=== PATIENT | female | born 1950 | race Caucasian/White ===

== ENCOUNTER 2021-12-26 21:29 | Emergency (ER) | payer OTHER, MEDICARE ==
[~2021-12-26] VITALS: Ht 157.5 cm; Wt 79.4 kg
[2021-12-26 21:37] VITALS: BP_SYST 172
--- NOTE | 2021-12-26 21:40 | NUR ---
Note fuentes in EDM - 12/26/21 at 2357 by SDNSHELDON PATIENT IS AWAKE AND ALERT. C/O HIGH BP AT HOME, NAUSEA/DIZZINESS X 2HRS. PAIN STATED 04/17 HEADACHE. NO OTHER COMPLAINTS AT THIS TIME. NO SIGNS OF ACUTE DISTRESS NOTED. WILL CONTINUE TO MONITOR.
--- NOTE | 2021-12-26 21:49 | NUR ---
Placed in room 6 . Placed on nurse monitoring, blood pressure machine and pulse oximeter. To gown for exam. Side rails up. Report given to FRANCK LUDWIG.
--- NOTE | 2021-12-26 21:50 | NUR ---
PATIENT IS AWAKE AND ALERT. C/O HIGH BP AT HOME, NAUSEA/DIZZINESS X 2HRS. PAIN STATED 8/10 HEADACHE. NO OTHER COMPLAINTS AT THIS TIME. NO SIGNS OF ACUTE DISTRESS NOTED. WILL CONTINUE TO MONITOR.
--- NOTE | 2021-12-26 22:04 | NUR ---
ER MD JUÁREZ AT BEDSIDE EXAMINING PATIENT.
[2021-12-26 23:15] LABS: BILIRUBIN,URINE NEGATIVE (NEGATIVE); BLOOD, URINE 2+ (NEGATIVE); CLARITY/URINE CLEAR (CLEAR); COLOR,URINE ORANGE (YELLOW); GLUCOSE,URINE NEGATIVE (NEGATIVE); KETONES,URINE NEGATIVE (NEGATIVE); LEUKOCYTE ESTERASE ,URINE NEGATIVE (NEGATIVE); NITRITE, URINE NEGATIVE (NEGATIVE); PROTEIN URINE 1+ (NEGATIVE); UROBILINOGEN,URINE 0.2 (0.2-1.0)
[2021-12-26 23:27] LABS: BARBITURATE, URINE NEGATIVE (NEG <=200); BENZODIAZEPINE, URINE POSITIVE (NEG <=150); CANNABINOID, URINE NEGATIVE (NEG <=50); COCAINE, URINE NEGATIVE (NEG <=150); METHAMPHETAMINES SCREEN,URINE NEGATIVE (NEG <=500); OPIATE, URINE NEGATIVE (NEG <=100); PHENCYCLIDINE SCREEN,URINE NEGATIVE (NEG <=25); UR TRICYCLIC ANTIDEPRESSANTS NEGATIVE (NEG <=300); URINE AMPHETAMINE NEGATIVE (NEG <=500); URINE METHADONE NEGATIVE (NEG <=200); URINE OXYCODONE SCREEN NEGATIVE (NEG <=100); URINE PROPOXYPHENE SCREEN NEGATIVE (NEG <=300)
[2021-12-26 23:35] LABS: EOSINOPHILS # (AUTO) 0.1 K/uL (0.0-0.4); HEMOGLOBIN 13.4 g/dL (12.0-16.0); MEAN CORPUSCULAR HGB CONC 33 % (32-36)
[2021-12-26 23:39] LABS: BASOPHILS % (AUTO) 0.3 % (0.0-2.0); EOSINOPHILS % (AUTO) 1.2 % (0.0-4.0); HEMATOCRIT 40.2 % (36-48); LYMPHOCYTES # (AUTO) 1.5 K/uL (1.0-5.5); LYMPHOCYTES % (AUTO) 16.9 % (20.5-51.5); MEAN CORPUSCULAR HEMOGLOBIN 30 pg (27-31); MEAN CORPUSCULAR VOLUME 91 fL (79.0-98.0); MONOCYTES # (AUTO) 0.6 K/uL (0.0-1.0); NEUTROPHILS # (AUTO) 6.5 K/uL (1.8-7.7); NEUTROPHILS % (AUTO) 74.6 % (40.0-70.0); PLATELET COUNT (AUTO) 166 K/uL (130-430); RED CELL DISTRIBUTION WIDTH 13.8 % (9.0-15.0); WHITE BLOOD COUNT (AUTO) 8.7 K/uL (4.8-10.8)
[2021-12-26] MEDS: KETOROLAC TROMETHAMINE 60 MG/2 ML VIAL IM ONE (23:48)
[2021-12-27 00:09] LABS: ANION GAP 123 (5-15); CHLORIDE 103 mmol/L (98-107); POTASSIUM 3.4 mmol/L (3.5-5.1); SODIUM SERUM 140 mmol/L (136-145)
[2021-12-27 00:10] LABS: CALCIUM 9.1 mg/dL (8.4-11.0); GLUCOSE 123 mg/dL (70-99)
[2021-12-27 00:11] LABS: CREATININE 0.79 mg/dL (0.55-1.30); GFR AFRICAN AMERICAN 93 mL/min (>90); TOTAL BILIRUBIN 0.6 mg/dL (0.0-1.0); UREA NITROGEN, BLOOD 18 mg/dL (8-21)
[2021-12-27 00:12] LABS: ALANINE AMINOTRANSFERASE 19 U/L (12-78); ALBUMIN 3.6 g/dL (3.4-4.8); ASPARTATE AMINOTRANSFERASE 16 U/L (10-37)
[2021-12-27 00:40] LABS: ALCOHOL, BLOOD < 3 mg/dL (<10)
[2021-12-27 01:46] VITALS: BP_SYST 140
--- NOTE | 2021-12-27 01:46 | NUR ---
PT PROVIDED WITH VERBAL AND WRITTEN HOMECARE INSTRUCTIONS. PT ENCOURAGED TO FOLLOW UP WITH [facility] [employer] REGARDING CONTINUED SYMPTOMS. PT VERBALIZED UNDERSTANDING. PT DISCHARGED WITH ALL BELONGINGS, AMBULATORY IN STABLE CONDITION.
== END 2021-12-27 01:48 | disposition home or self-care (01) ==
LOC: SED 21:29
DX: I10 Essential (primary) hypertension (principal); Z88.5 Allergy status to narcotic agent
CPT/HCPCS: 36415; 70450; 76376; 80053; 80307; 81003; 84484; 85025; 93005; 96372; 99285; G0482; J1885